=== PATIENT | female | born 1985 | race Asian ===

== ENCOUNTER 2017-12-30 15:29 | Emergency (ER) | payer OTHER ==
[~2017-12-30] VITALS: Ht 170.2 cm; Wt 59.6 kg
[2017-12-30 15:31] VITALS: TEMP 37; Ht 170.2 cm; Wt 59.6 kg
[2017-12-30] MEDS ORDERED: ACETAMINOPHEN 500 MG TAB PO STA (16:05)
--- NOTE | 2017-12-30 16:27 | EMERGENCY ROOM VISIT NOTE ---
History Report prepared by Rhoda: Milly Fontaine Under the Supervision of: Dr. Khris Bourne M.D. First contact with patient: 15:57 Chief Complaint: VAGINAL BLEEDING Stated Complaint: SEVERE PAIN IN LOWER BELLY, BLEEDING History of Present Illness The patient is a 32 year old female with a past medical history of ovarian cyst surgery who presents to the ED with a cc of constant abdominal pain and vaginal bleeding beginning 1 hour ago. She reports she is about 7 weeks , and her last menstrual period was 7 weeks ago. The patient states she had a positive home test, but no blood work or ultrasound. She notes she has an LANDS RESOURCE MANAGER appointment tomorrow. The patient denies any tissue in the blood or any fevers. She also denies recent trauma or intercourse. She notes she recently did some heavy lifting while moving. The patient states this is her first . She denies use of blood thinners. Source of History: patient, spouse/significant other () Onset: 1 hour ago Position: abdomen, other (vagina) Quality: other (pain, bleeding) Associated Symptoms: No fevers Note: Denies: tissue in blood. Review of Systems See HPI for pertinent positives and negatives. A total of ten systems were reviewed and were otherwise negative. Past Medical & Surgical Medical Problems: (1) Ovarian cyst (2) Vaginal bleeding Surgical Problems: (1) H/O laparoscopy Family History No pertinent family history stated. Social History Smoking Status: Never Smoker Smokeless Tobacco Use: No Alcohol Use: none Drug Use: none Marital Status: Housing Status: lives with significant other () Occupation Status: employed Current/Historical Medications No Active Prescriptions or Reported Meds Allergies Coded Allergies: No Known Allergies (Unverified , 12/30/17) Physical Exam Vital Signs Date Time Temp Pulse Resp B/P (MAP) Pulse Ox O2 Delivery O2 Flow Rate FiO2 12/30/17 19:10 78 18 112/80 98 Room Air 12/30/17 17:21 69 16 101/66 99 Room Air 12/30/17 15:31 37.0 86 18 111/77 95 Room Air Physical Exam GENERAL: Awake, alert, well-appearing, NAD HENT: Normocephalic, atraumatic. EYES: Normal conjunctiva. Sclera non-icteric. PERRL. No anisocoria. NECK: Supple. No nuchal rigidity. FROM. RESPIRATORY: CTAB, no rhonchi, wheezing, crackles CARDIAC: RRR, no MRG ABDOMEN: Soft, NTND, BS+ MSK: No chest wall TTP, no LE edema NEURO: GCS 15, CN 2-12 intact, moves all 4s on command SKIN: No rash or jaundice noted. PELVIC: Dark blood in vaginal vault, oss is closed. Medical Decision & Procedures Laboratory Results 12/30/17 16:30 Red Blood Count 4.71, Mean Corpuscular Volume 85.8, Mean Corpuscular Hemoglobin 28.0, Mean Corpuscular Hemoglobin Concent 32.7, Mean Platelet Volume 9.6, Neutrophils (%) (Auto) 86.0, Lymphocytes (%) (Auto) 8.4, Monocytes (%) (Auto) 4.6, Eosinophils (%) (Auto) 0.4, Basophils (%) (Auto) 0.3, Neutrophils # (Auto) 8.51, Lymphocytes # (Auto) 0.83, Monocytes # (Auto) 0.46, Eosinophils # (Auto) 0.04, Basophils # (Auto) 0.03 12/30/17 16:30 Test 12/30/17 15:55 12/30/17 16:30 Urine Color YELLOW Urine Appearance CLEAR (CLEAR) Urine pH 7.5 (4.5-7.5) Urine Specific Rayne 1.016 (1.000-1.030) Urine Protein NEG (NEG) Urine Glucose (UA) NEG (NEG) Urine Ketones NEG (NEG) Urine Occult Blood 1+ (NEG) Urine Nitrite NEG (NEG) Urine Bilirubin NEG (NEG) Urine Urobilinogen NEG (NEG) Urine Leukocyte Esterase NEG (NEG) Urine WBC (Auto) 1-5 /hpf (0-5) Urine RBC (Auto) 0-4 /hpf (0-4) Urine Hyaline Casts (Auto) 1-5 /lpf (0-5) Urine Epithelial Cells (Auto) 10-20 /lpf (0-5) Urine Bacteria (Auto) NEG (NEG) Urine Test POS (NEG) White Blood Count 9.90 K/uL (4.8-10.8) Red Blood Count 4.71 M/uL (4.2-5.4) Hemoglobin 13.2 g/dL (12.0-16.0) Hematocrit 40.4 % (37-47) Mean Corpuscular Volume 85.8 fL (80-100) Mean Corpuscular Hemoglobin 28.0 pg (25-34) Mean Corpuscular Hemoglobin Concent 32.7 g/dl (32-36) Platelet Count 229 K/uL (130-400) Mean Platelet Volume 9.6 fL (7.4-10.4) Neutrophils (%) (Auto) 86.0 % Lymphocytes (%) (Auto) 8.4 % Monocytes (%) (Auto) 4.6 % Eosinophils (%) (Auto) 0.4 % Basophils (%) (Auto) 0.3 % Neutrophils # (Auto) 8.51 K/uL (1.4-6.5) Lymphocytes # (Auto) 0.83 K/uL (1.2-3.4) Monocytes # (Auto) 0.46 K/uL (0.11-0.59) Eosinophils # (Auto) 0.04 K/uL (0-0.5) Basophils # (Auto) 0.03 K/uL (0-0.2) RDW Standard Deviation 43.1 fL (36.4-46.3) RDW Coefficient of Variation 13.7 % (11.5-14.5) Immature Granulocyte % (Auto) 0.3 % Immature Granulocyte # (Auto) 0.03 K/uL (0.00-0.02) Prothrombin Time 9.9 SECONDS (9.0-12.0) Prothromb Time International Ratio 0.9 (0.9-1.1) Activated Partial Thromboplast Time 23.4 SECONDS (21.0-31.0) Partial Thromboplastin Ratio 0.9 Anion Gap 6.0 mmol/L (3-11) Est Creatinine Clear Calc Drug Dose 109.1 ml/min Estimated GFR () 132.6 Estimated GFR (Non- 114.4 BUN/Creatinine Ratio 13.0 (10-20) Calcium Level 8.9 mg/dl (8.5-10.1) Human Chorionic Gonadotropin, Quant 2437 mIU/mL Laboratory results reviewed by me Medications Administered Medications (Trade) Dose Ordered Sig/Herb Route Start Time Stop Time Status Last Admin Dose Admin Acetaminophen (Tylenol Tab) 1,000 mg NOW STAT PO 12/30/17 16:05 12/30/17 16:09 DC 12/30/17 16:20 1,000 MG ED Course 1601: The patient was evaluated in room A3. A complete history and physical exam was performed. 182: I discussed the case with Dr. Poole, [facility] L[employer]S RESOURCE MANAGER. She will set up follow up for a repeat beta quant and ultrasound. 1903: I performed a pelvic exam. 1914: I reevaluated the patient. Discussed results and discharge instructions: she verbalized understanding and agreement. The patient is ready for discharge. Medical Decision Nursing notes reviewed. Ancillary studies and prior records reviewed. The patient is a 32 year old female with a past medical history of ovarian cyst surgery who presents to the ED with a cc of constant abdominal pain and vaginal bleeding beginning 1 hour ago Etiologies such as ectopic , dysfunction uterine bleeding, bleeding dyscrasia, trauma, infection, as well as others were entertained. Patient was seen and evaluated the bedside. Patient has been complaining of some vaginal bleeding which upon further evaluation began last evening. The patient does report having a positive test and states that this is her first . The patient does complain of some mild lower abdominal discomfort but this is not elicited on exam. Patient did have blood work completed along with a type and screen urinalysis and pelvic ultrasound. Patient's blood work shows normal blood counts. The patient did have a positive test and a beta quant was added. Patient' s beta quant was just over 2000. The patient's pelvic ultrasound did show a mass that may be a cyst and could be intra-ovarian or just adjacent to the ovary as discussed with the on-call radiologist. I did perform a pelvic exam which showed that the office was closed and there was some blood in the vault. I did discuss this with the on-call [employer] MANAGER physician who recommended to keep her follow-up appointment which she has tomorrow with the OB nurse. She then will have additional follow-up testing arranged for her tomorrow for Saturday which should include a repeat ultrasound as well as a repeat beta quantitative analysis. Patient's blood type is O+ no need for RhoGam. I did explain this to the patient. Patient was told to return if she has any worsening symptoms. She has strict precautions to return if she has worsening abdominal pain or bleeding. She is in agreement with the plan of care. Patient was given strict follow-up, discharge, and return precautions. All questions were answered. Patient was deemed suitable for outpatient follow-up at this time. Patient agreed with the plan of care and was safely discharged home. Medication Reconcilliation Current Medication List: was personally reviewed by me Blood Pressure Screening Patient's blood pressure: Normal blood pressure Blood pressure disposition: Did not require urgent referral Consults Time Called: 180 Consulting Physician: Dr. Poole, [facility] L[employer]S RESOURCE MANAGER Returned Call: [phone] I discussed the case with Dr. Poole, [facility] L[employer] RESOURCE MANAGER. She will set up follow up for a repeat beta quant and ultrasound. Impression Primary Impression: Vaginal bleeding affecting early Scribe Attestation The scribe's documentation has been prepared under my direction and personally reviewed by me in its entirety. I confirm that the note above accurately reflects all work, treatment, procedures, and medical decision making performed by me. Departure Information Dispostion Home / Self-Care Prescriptions No Active Prescriptions or Reported Meds Referrals Lisha Poole M.D. Forms HOME CARE DOCUMENTATION FORM, IMPORTANT VISIT INFORMATION, WORK / SCHOOL INSTRUCTIONS Patient Instructions ED Miscarriage Poss, My [facility] Additional Instructions Please return to the emergency department if you have worsening or recurrent symptoms not amenable to at-home treatment. Please call for a follow-up appointment with her primary care physician. Please take your medications as prescribed. If you have other concerns and/or complaints please feel free to also call your primary care physician's office or return the ED for further evaluation, management, and treatment. You may take tylenol 650 mg every 6 hours as needed for pain/fever unless told by your physician to not take it or have liver problems. Please keep your follow-up OB nurse appointment tomorrow on December 31. They should give you information with regards to your follow-up blood work and ultrasound on Saturday, January 01. Dr. Lisha Poole Obstetrics [facility] gynecology [address], [place], [place] [id number] [phone] Please return if you have any worsening symptoms, bleeding, or abdominal pain. Take your medications as prescribed. You have been examined and treated today on an emergency basis only. This is not a substitute for, or an effort to provide, complete comprehensive medical care. It is impossible to recognize and treat all injuries or illnesses in a single emergency department visit. It is therefore important that you follow up closely with [facility], your PCP, and/or your specialist(s). Call as soon as possible for an appointment. Thank you for your time and consideration. I look forward to speaking with you again soon. Please don't hesitate to call us if you have any questions.
[2017-12-30 16:50] LABS: BASO % 0.3 %; BASO ABS # 0.03 K/uL (0-0.2); EOS % 0.4 %; EOS ABS # 0.04 K/uL (0-0.5); HEMATOCRIT 40.4 % (37-47); HEMOGLOBIN 13.2 g/dL (12.0-16.0); IG# 0.03 K/uL (0.00-0.02); LYMPH % 8.4 %; LYMPH ABS # 0.83 K/uL (1.2-3.4); MEAN CELL VOLUME 85.8 fL (80-100); MEAN CORPUSCULAR HGB CONC 32.7 g/dl (32-36); MEAN PLATELET VOLUME 9.6 fL (7.4-10.4); MONO % 4.6 %; MONO ABS # 0.46 K/uL (0.11-0.59); NEUT ABS # 8.51 K/uL (1.4-6.5); PLATELET COUNT 229 K/uL (130-400); RED CELL DISTRIBUTION WIDTH CV 13.7 % (11.5-14.5); RED CELL DISTRIBUTION WIDTH SD 43.1 fL (36.4-46.3)
[2017-12-30 16:57] LABS: INR 0.9 (0.9-1.1); PTT PATIENT 23.4 SECONDS (21.0-31.0)
[2017-12-30 17:06] LABS: CALCIUM 8.9 mg/dl (8.5-10.1); CREATININE 0.69 mg/dl (0.60-1.20); POTASSIUM 3.5 mmol/L (3.5-5.1)
--- NOTE | 2017-12-30 18:05 | DIAGNOSTIC IMAGING REPORT ---
<14 WKS SINGLE HISTORY: lower abdominal pain, vag bleeding, 7 weeks preg COMPARISON STUDY: None. FINDINGS: Transabdominal and transvaginal scanning of the pelvis was performed. The uterus is within normal limits. Slightly heterogeneous endometrial stripe measuring 5 mm in thickness. There is no evidence for an intrauterine . The right ovary is normal in size and contains a 1.8 cm thick-walled cyst. This favors a corpus luteum. Small amount of complex fluid within the right adnexa. The left ovary measures 3.5 x 2.4 x 1.9 cm contains a few small follicles/cysts. There is a heterogeneous solid and cystic lesion within the left adnexa which measures 2.5 x 2.3 x 1.8 cm. This demonstrates thin septations and a partially echogenic wall. This is likely within the left ovary. Therefore, this favors a complex cyst or ovarian dermoid. However the exact location is difficult to identify and this could be separate from the left ovary. IMPRESSION: 1. No evidence for an intrauterine gestation. In the setting of a positive test this could represent an early nonvisualized intrauterine , recent spontaneous , or ectopic . 2. There is a heterogeneous solid and cystic lesion within the left adnexa which measures 2.5 x 2.3 x 1.8 cm. This demonstrates thin septations and a partially echogenic wall. This is likely within the left ovary. Therefore, this favors a complex cyst or ovarian dermoid. However the exact location is difficult to identify and this could be separate from the left ovary. Therefore, an ectopic cannot be excluded given the patient's history of a positive test. 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 3. Small of complex fluid within the right adnexa. 4. These findings were discussed with Dr. Bourne at 6:03 PM on 12/30/2017. Electronically signed by: Juan Leo M.D. 12/30/2017 6:04 PM Dictated Date/Time: 12/30/2017 5:52 PM
[2017-12-30 19:10] VITALS: BP 112/80; PULSE 78; O2SAT 98
== END 2017-12-30 19:33 | disposition home or self-care (01) ==
LOC: C.EDB 15:30 → C.EDA 19:33
DX: O20.8 Other hemorrhage in early pregnancy (principal); Z3A.01 Less than 8 weeks gestation of pregnancy; R93.5 Abnormal findings on diagnostic imaging of other abdominal regions, including retroperitoneum

== ENCOUNTER → 2018-01-01 | Outpatient (CLI) | payer OTHER | END | disposition home or self-care (01) | LOC: C.LAB1850 08:03 | PROVIDERS: ATTEND Obstetrics & Gynecology | DX: Z34.90 Encounter for supervision of normal pregnancy, unspecified, unspecified trimester (principal) ==

== ENCOUNTER → 2018-01-08 | Outpatient (CLI) | payer OTHER | END | disposition home or self-care (01) | LOC: C.LAB1850 12:01 | PROVIDERS: ATTEND Obstetrics & Gynecology | DX: O03.9 Complete or unspecified spontaneous abortion without complication (principal) ==